=== PATIENT | male | born 1990 | race Caucasian/White ===

== ENCOUNTER 2023-02-28 14:54 | Emergency (ER) | payer SELFPAY ==
--- NOTE | ~2023-02-28 | XR_ITS ---
EXAMINATION: XR foot RT min 3V DATE: 02/28/2023 15:17 INDICATION: Right foot pain TECHNIQUE: Dorsoplantar, lateral, and 2 oblique views of the right foot were obtained. COMPARISON: None. FINDINGS: No fracture, dislocation, or subluxation. The bones, soft tissues, and joint spaces are normal. IMPRESSION: 1. No acute osseous abnormality. Reviewed, dictated and finalized at location []
[2023-02-28 15:00] VITALS: BP 137/87; PULSE 81; RESP 20; TEMP 36.4; O2SAT 99
--- NOTE | 2023-02-28 15:09 | ED.LOWEXIN ---
HPI - Extremity Injury (Lower) General Chief Complaint: Extremity Injury, Lower Stated Complaint: Right Foot Injury History of Present Illness HPI Narrative: patient presents with right foot pain with weight bearing. patient was wrestling last night witha relative and rolled his right foot. no deformity no bruising no edema noted. Related Data Home Medications Medication Instructions Recorded Confirmed No Home Medications 02/28/23 02/28/23 Allergies Allergy/AdvReac Type Severity Reaction Status Date / Time No Known Allergies Allergy Unverified 02/28/23 15:03 Review of Systems Review of Systems: CONSTITUTIONAL: Denies fever, chills, or sweats. EYES: Denies visual changes, redness, or discharge. ENT: Denies rhinorrhea, congestion, sore throat, or otalgia. CARDIOVASCULAR: Denies chest pain, palpitations, or edema. RESPIRATORY: Denies cough or dyspnea. GASTROINTESTINAL: Denies abdominal pain, nausea, vomiting, or diarrhea. GENITOURINARY: Denies dysuria or hematuria. SKIN: Denies rash or itching. MUSCULOSKELETAL: Denies back pain, joint pain, or myalgia. NEUROLOGIC: Denies headache, numbness, or weakness. PSYCHIATRIC: Denies anxiety or depression. PMFSH Comments At time of signature, agree with nursing past medical, surgical, social and family history. There is no relevant family history pertinent to the presenting complaint Exam Narrative: GENERAL: Well-appearing, well-nourished, and in no acute distress. HEAD: Normocephalic, atraumatic. EYES: PERRLA and EOMI. ENT: Nares clear, no rhinorrhea or epistaxis. Mucous membranes moist. NECK: Supple. CHEST: Clear to auscultation. No respiratory distress. HEART: Regular rate and rhythm. No murmur heard. Normal peripheral pulses. ABDOMEN: Soft, nontender, nondistended, normal active bowel sounds. EXTREMITIES: Normal range of motion. No edema.NORMAL DP PULSE, NORMAL CAP REFILL. NORMAL SENSATION. NVI. NO TENDERNESS TO FOOT SENSATION NVI NORMAL DORSALIS PEDIS PULSE. NORMAL MOVEMETN OF ALL TOES. NORMAL CAPILLARY REFILL. NORMAL SKIN COLOR. NO SKIN LESIONS SKIN TNTACT NO CALF PAIN NO CALF TENDERNESS NOCALF SWELLING NORMAL ROM OF KNEE.KIN INTACT. NORMAL DP PULSE, NORMAL CAP REFILL. NORMAL SENSATION. SKIN: Warm, dry, no rash. NEURO: No focal deficits. Alert and oriented x3. [place] Coma Scale Eye Opening: Spontaneous 4 [place] Coma Scale Motor: Obeys Commands 6 [place] Coma Scale Verbal: Oriented 5 [place] Coma Scale Total 15 Course Course Level of Care: Express Care Visit Vital Signs Vital signs: Vital Signs Temperature 36.4 C 02/28/23 15:00 Pulse Rate 81 02/28/23 15:00 Respiratory Rate 20 02/28/23 15:00 Blood Pressure 137/87 02/28/23 15:00 Pulse Oximetry 99 02/28/23 15:00 Oxygen Delivery Room Air 02/28/23 15:00 Temperature 36.4 C 02/28/23 15:00 Pulse Rate 81 02/28/23 15:00 Respiratory Rate 20 02/28/23 15:00 Blood Pressure 137/87 02/28/23 15:00 Pulse Oximetry 99 02/28/23 15:00 Oxygen Delivery Room Air 02/28/23 15:00 Please VANDANA schedule a followup visit with your personal physician for further evaluation and treatment. Including recheck and discussion of your blood pressure. If your symptoms persist, change or worsen significantly before you can contact your personal physician then please, without delay, go to the emergency department for further evaluation Discharge Plan Discharge Clinical Impression: Foot contusion Patient Disposition: Home, Self-Care Condition: Stable Instructions: Foot Contusion (ED) Additional Instructions: Ice to the area 20-30 minutes 4-6 times a day Elevate above heart Tylenol for lesser pain Ibuprofen regularly for the next 2-3 days for the inflammation Follow-up with PCP if further problems or concerns -If you have any worsening of symptoms or any other concerns please go to the ED immediately. Prescriptions: No Action No Home Medications
== END 2023-02-28 15:33 | disposition home or self-care (01) ==
PROVIDERS: Emergency Provider Nurse Practitioner Family
DX: S90.31XA Contusion of right foot, initial encounter (principal); X50.9XXA Other and unspecified overexertion or strenuous movements or postures, initial encounter; Y93.83 Activity, rough housing and horseplay
CPT/HCPCS: 73630; 99203; G0463

== ENCOUNTER 2023-07-23 14:34 | Emergency (ER) | payer MEDICAID, SELFPAY ==
[2023-07-23 14:40] VITALS: BP 130/76; PULSE 96; RESP 16; TEMP 37.3; O2SAT 98
[2023-07-23 14:49] VITALS: BP 130/76; PULSE 96; RESP 16; TEMP 37.3; O2SAT 98
--- NOTE | 2023-07-23 14:49 | ED.URI ---
HPI - URI/Sore Throat General Chief Complaint: Upper Respiratory Infection Stated Complaint: nausea/chills/aches Time Seen by Provider: 07/23/23 14:45 Source: patient and RN notes reviewed Mode of arrival: ambulatory Limitations: no limitations History of Present Illness HPI Narrative: 33-year-old male presents with concern for one-month history nasal congestion, drainage, sinus pain, cough, chills, body aches. Reports he has been taking Mucinex. MD elicited complaint: cough and nasal congestion Related Data Allergies Allergy/AdvReac Type Severity Reaction Status Date / Time No Known Allergies Allergy Verified 07/23/23 14:49 Review of Systems Review of Systems: CONSTITUTIONAL: Reports malaise, chills, sweats EYES: Denies visual changes, redness, or discharge. ENT: Reports rhinorrhea, congestion, sinus pain CARDIOVASCULAR: Denies chest pain, palpitations, or edema. RESPIRATORY: Reports cough. Denies dyspnea. GASTROINTESTINAL: Denies abdominal pain, nausea, vomiting, diarrhea SKIN: Denies rash or itching. MUSCULOSKELETAL: Reports myalgia. NEUROLOGIC: Reports headache. All systems reviewed & are unremarkable except as noted in HPI and below [facility] Comments At time of signature, agree with nursing past medical, surgical, social and family history. There is no relevant family history pertinent to the presenting complaint Exam Narrative: GENERAL: Nontoxic-appearing and in no acute distress. HEAD: Normocephalic EYES: PERRLA, conjunctivae clear ENT: Nares clear, sinus tenderness. Mucous membranes moist. TM pearly li with dull light reflex bilaterally; no tragal tenderness. Oropharynx not erythematous without lesions. Tonsils not enlarged and without exudate, no drooling, no hoarseness, no trismus, uvula midline. NECK: Supple. No lymphadenopathy CHEST: Scattered expiratory wheeze, otherwise clear to auscultation, breath sounds equal. No rhonchi, rales, or stridor. No respiratory distress, speaks in full sentences. HEART: Regular rate and rhythm. No murmur heard. SKIN: Warm, dry, no rash. NEURO: Alert and oriented x3. PSYCH: Normal mood and affect Course Course Emergency Course: Patient is aware of diagnosis, understands and agrees to treatment plan. Anticipatory guidance given. Patient agrees to follow-up as directed and is aware of reasons to seek care at the emergency department. Portions of this record may have been created with voice recognition software Level of Care: Express Care Visit Vital Signs Vital signs: Vital Signs Temperature 99.1 F 07/23/23 14:40 Pulse Rate 96 07/23/23 14:40 Respiratory Rate 16 07/23/23 14:40 Blood Pressure 130/76 07/23/23 14:40 Pulse Oximetry 98 07/23/23 14:40 Oxygen Delivery Room Air 07/23/23 14:40 Temperature 99.1 F 07/23/23 14:40 Pulse Rate 96 07/23/23 14:40 Respiratory Rate 16 07/23/23 14:40 Blood Pressure 130/76 07/23/23 14:40 Pulse Oximetry 98 07/23/23 14:40 Oxygen Delivery Room Air 07/23/23 14:40 Reviewed. MDM - URI/Sore Throat MDM Narrative Medical decision making narrative: Differential diagnosis considered: Coleman virus, strep pharyngitis, allergic rhinitis, upper respiratory tract infection, sinusitis, rhinosinusitis, nasopharyngitis. viral pharyngitis, otitis media, otitis externa, pneumonia, bronchitis, viral cough syndrome, viral syndrome, and influenza. Exam findings show no acute concerns or changes; patient is non-toxic appearing and is in no distress. Patient is appropriate for outpatient treatment and follow-up. Lab Data Attestation: I reviewed the patient's lab results. Critical Care Time Critical Care Time Critical Care Time: No Discharge Plan Discharge Clinical Impression: Sinobronchitis Patient Disposition: Home, Self-Care Condition: Stable Instructions: Antibiotic Form, Sinusitis (ED) Additional Instructions: Take medications as directed Recommend antihistamine such as Benadry
== END 2023-07-23 14:58 | disposition home or self-care (01) ==
PROVIDERS: Emergency Provider Nurse Practitioner; PCP Physician Assistant
DX: J32.9 Chronic sinusitis, unspecified (principal); J40 Bronchitis, not specified as acute or chronic
CPT/HCPCS: 99213; G0463

== ENCOUNTER 2023-08-02 15:26 | Emergency (ER) | payer MEDICAID, SELFPAY ==
[2023-08-02 15:30] VITALS: BP 153/81; PULSE 87; RESP 20; TEMP 36.7; O2SAT 95
--- NOTE | 2023-08-02 15:47 | ED.GENADULT ---
HPI - General Adult General Chief complaint: Upper Respiratory Infection Stated complaint: Nausea,Vomiting Source: patient, RN notes reviewed and old records reviewed History of Present Illness HPI narrative: 33 yo M presents to urgent care with complaints of runny nose, congestion, cough, and intermittent vomiting x 1 month. Pt also admits he is SOB sometimes. Pt states he can't urinate or have a BM but when discussed further, he is urinating 2-3x/day. Denies any diarrhea or abdominal pain. Denies any fevers, chills, chest pain. Pt was seen here 10 days ago and placed on doxycycline, medrol dose pack, and inhaler, that pt states he finished with no relief. Related Data Allergies Allergy/AdvReac Type Severity Reaction Status Date / Time No Known Allergies Allergy Verified 08/02/23 15:42 Review of Systems Review of Systems: Pertinent positives and pertinent negatives per HPI. PMFSH Comments At the time of my signature, I reviewed and agree with the nursing past medical, surgical, social, and family history. There is no relevant family history pertinent to the patient complaint. Exam Narrative: GENERAL: This is a well-nourished, well-developed patient, in no apparent distress. HEAD: normocephalic, atraumatic. EYES: Sclera clear/white. Vision is grossly intact. EARS: External ears normal, auditory canals clear and without drainage. Hearing grossly intact. NOSE: External nose normal with no obvious nasal discharge, nares without redness, no rhinorrhea. THROAT: Mucous membranes moist, posterior pharynx clear. NECK: Neck supple, non-tender without lymphadenopathy, masses or thyromegaly. CARDIOVASCULAR: Regular rate and rhythm without murmurs, gallops, or rubs. RESPIRATORY: Clear to auscultation. Breath sounds equal bilaterally. No wheezes, rales, or rhonchi. GASTROINTESTINAL: Abdomen soft, non-tender, nondistended. Bowel sounds are active. No hepato-splenomegaly, or palpable masses. No guarding. SKIN: warm, intact with no suspicious lesions or rash, good texture and turgor. NEURO: awake, alert, and oriented to person, place and time. There were no obvious focal neurologic abnormalities. Course Course Level of Care: Express Care Visit Vital Signs Vital signs: Vital Signs Temperature 98.1 F 08/02/23 15:30 Pulse Rate 87 08/02/23 15:30 Respiratory Rate 20 11/28/23 15:30 Blood Pressure 153/81 H 08/02/23 15:30 Pulse Oximetry 95 08/02/23 15:30 Oxygen Delivery Room Air 08/02/23 15:30 Temperature 98.1 F 08/02/23 15:30 Pulse Rate 87 08/02/23 15:30 Respiratory Rate 20 08/02/23 15:30 Blood Pressure 153/81 H 08/02/23 15:30 Pulse Oximetry 95 08/02/23 15:30 Oxygen Delivery Room Air 08/02/23 15:30 Reviewed Medical Decision Making MDM Narrative Medical decision making narrative: You've been diagnosed with a viral illness that would not require antibiotics at this time. Take the Zofran ODT at home as directed for nausea and get plenty of fluids. If you would like to eat food, you should follow the BRAT diet (bananas, rice, applesauce, and toast, or things of the like). If you develop any new or worsening symptoms, you should go to the emergency dept without hesitation. 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 pt passed PO challenge in exam room after the zofran. Differential Diagnosis Differential Diagnosis: Gastroenteritis, dehydration, Viral illness Vital Signs Vital Signs: Vital Signs Temperature 98.1 F 08/02/23 15:30 Pulse Rate 87 08/02/23 15:30 Respiratory Rate 20 08/02/23 15:30 Blood Pressure 153/81 H 08/02/23 15:30 Pulse Oximetry 95 08/02/23 15:30 Oxygen Delivery Room Air 08/02/23 15:30 Temperature 98.1 F 08/02/23 15:30 Pulse Rate 87 08/02/23 15:30 Respiratory Rate 20 08/02/23 15:30 Blood Pressure 153/81 H 08/02/23 15:30 Pulse Oximetry 95 08/02/23 15:30 Oxygen Delivery Room Air 08/02/23 15:30 Critical Care
[2023-08-02] MEDS: ONDANSETRON HCL ODT 4 MG TABLET PO (15:52)
--- NOTE | 2023-08-02 16:16 | PC.NURSE ---
PT TAKING WATER WITHOUT COMPLAINTS.
== END 2023-08-02 16:26 | disposition home or self-care (01) ==
PROVIDERS: Emergency Provider Nurse Practitioner Family; PCP Physician Assistant
DX: B34.9 Viral infection, unspecified (principal); K52.9 Noninfective gastroenteritis and colitis, unspecified
CPT/HCPCS: 99213; A9270; G0463

== ENCOUNTER 2023-09-02 19:15 | Emergency (ER) | payer OTHER, SELFPAY ==
--- NOTE | 2023-09-02 19:21 | ED.SKABFB ---
HPI - Skin/Abscess/Foreign Bdy General Chief complaint: Extremity Problem,Nontraumatic Stated complaint: left foot pinky toe swollen Time Seen by Provider: 09/02/23 19:25 Source: patient and RN notes reviewed Mode of arrival: ambulatory Limitations: dementia History of Present Illness HPI narrative: 33-year-old male presents with concern for pain, swelling, redness to the 5th digit of his left foot. 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 MD complaint: other (Redness) Related Data Allergies Allergy/AdvReac Type Severity Reaction Status Date / Time No Known Allergies Allergy Verified 09/02/23 19:28 Review of Systems Review of Systems: CONSTITUTIONAL: Denies malaise, chills, sweats, or fever. EYES: Denies redness, or discharge. ENT: Denies rhinorrhea, congestion, swollen lips, swollen tongue CARDIOVASCULAR: Denies chest pain, palpitations, or edema. RESPIRATORY: Denies cough or dyspnea. GASTROINTESTINAL: Denies abdominal pain, nausea, vomiting SKIN: Reports redness, swelling and tenderness to the 5th digit of the left foot. Denies purulent drainage, vesicles, bullae, numbness, pain beyond proportion MUSCULOSKELETAL: Denies joint pain or myalgia. NEUROLOGIC: Denies headache. All systems reviewed & are unremarkable except as noted in HPI and below PMFSH Comments At time of signature, agree with nursing past medical, surgical, social and family history. There is no relevant family history pertinent to the presenting complaint Exam Narrative: GENERAL: Well-appearing, well-nourished, and in no acute distress. HEAD: Normocephalic, atraumatic. EYES: PERRLA, conjunctivae clear ENT: Mucous membranes moist. NECK: Supple. No lymphadenopathy CHEST: Clear to auscultation. No respiratory distress. HEART: Regular rate and rhythm. SKIN: Warm, dry. Erythema, induration, tenderness, warmth noted to the 5th digit of the left foot, some purulent drainage noted between the 4th and 5th digits. No vesicles, bullae, necrosis, ecchymosis, crepitus noted. NEURO: Alert and oriented x3. PSYCH: Normal mood and affect Course Course Emergency Course: Patient is aware of diagnosis, understands and agrees to treatment plan. Anticipatory guidance given. Patient agrees to follow-up as directed and is aware of reasons to seek care at the emergency department. Portions of this record may have been created with voice recognition software Level of Care: Express Care Visit Vital Signs Vital signs: Reviewed. MDM - Skin/Abscess/Foreign Bdy MDM Narrative Medical decision making narrative: Does not appear at this time to be erythema multiforme, bullous, SJS, TEN; no evidence at this time to suggest RMSF, NSTI, endocarditis or Lyme disease; patient looks well, nontoxic and is tolerating oral intake; no neurologic signs or symptoms; no headache, photophobia or neck pain; afebrile. Patient does not have history of of penetrating trauma, laceration, blunt trauma, recent surgery, immunosuppression, malignancy, obesity, alcoholism, corticosteroid use. Discussed the importance of follow-up, patient agrees; question, cellulitis versus necrotizing soft tissue infection versus abscess. Critical Care Time Critical Care Time Critical Care Time: No Discharge Plan Discharge Clinical Impression: Cellulitis Patient Disposition: Home, Self-Care Condition: Stable Instructions: Antibiotic Form, Cellulitis (ED) Additional Instructions: Soak your foot: Soak your foot in a mixture of equal parts vinegar and water 3 or 4 times each day. This will help decrease inflammation. Apply a warm compress: Soak a washcloth in warm water and place it on your foot. This will help decrease inflammation. Elevate: Raise your foot above the level of your heart as often as you can. This will help decrease swelling and pain. Prop your foot on pillows or blankets to keep i
[2023-09-02 19:28] VITALS: BP 123/54; PULSE 99; RESP 18; TEMP 36.8; O2SAT 99
[2023-09-02 19:29] VITALS: BP 123/54; PULSE 99; RESP 18; TEMP 36.8; O2SAT 99
== END 2023-09-02 19:35 | disposition home or self-care (01) ==
PROVIDERS: Emergency Provider Nurse Practitioner; PCP Physician Assistant
DX: L03.032 Cellulitis of left toe (principal)
CPT/HCPCS: 99213; G0463

== ENCOUNTER 2023-11-10 15:03 | Emergency (ER) | payer OTHER, SELFPAY ==
[2023-11-10 15:11] VITALS: BP 132/80; PULSE 107; RESP 16; TEMP 36.1; O2SAT 99
--- NOTE | 2023-11-10 15:16 | ED.GENADULT ---
HPI - General Adult General Chief complaint: Skin/Abscess/Foreign Body Stated complaint: Skin Sore Lower Back Source: patient, RN notes reviewed and old records reviewed Mode of arrival: ambulatory Limitations: no limitations History of Present Illness HPI narrative: 33-year-old male patient presents to [facility] with complaint abscess to buttocks this started several days ago. Patient states has been trying to take care of it at home. Patient states cut it with a razor himself and had slight drainage. Patient denies history of abscesses, patient denies history of MRSA Related Data Home Medications Medication Instructions Recorded Confirmed sertraline 50 mg tablet mg 11/10/23 Allergies Allergy/AdvReac Type Severity Reaction Status Date / Time No Known Allergies Allergy Verified 11/10/23 15:14 Review of Systems Constitutional: Constitutional: Reports no additional constitutional complaints, Denies body ache(s), Denies chills, Denies fatigue, Denies fever(s) and Denies headache(s) Eyes: Eyes: Reports no additional eye complaints and Denies blurry vision ENT: Reports system reviewed and no additional complaints, except as documented, Denies vertigo, Denies dizziness, Denies ear discharge, Denies otalgia, Denies facial pain, Denies headache(s), Denies nasal congestion, Denies nasal discharge, Denies sinus pain, Denies sinus pressure and Denies sore throat Cardiovascular: Cardiovascular: Reports no additional cardiovascular complaints, Denies chest pain, Denies chest pain at rest, Denies rapid heart rate and Denies dyspnea Respiratory: Respiratory: Reports no additional respiratory complaints, Denies chest congestion, Denies cough, Denies pain on inspiration, Denies pain with cough and Denies dyspnea Gastrointestinal: Gastrointestinal: Denies abdominal pain, Denies diarrhea, Denies nausea and Denies vomiting Integumentary/Breasts: Skin/Breast: Reports change in pigmentation, Denies rash and Reports wounds Neurologic: Reports system reviewed and no additional complaints, except as documented, Denies vertigo, Denies dizziness and Denies headache(s) Endocrine: Endocrine: Denies fatigue PMFSH Comments At the time of my signature, I reviewed and agree with the nursing past medical, surgical, social, and family history. There is no relevant family history pertinent to the patient complaint. Exam Const: General: cooperative, healthy appearing, no acute distress and well nourished Nutritional Appearance: well nourished Orientation/consciousness: patient oriented x3 Limitations: no limitations HENMT: Head: normal to inspection and normocephalic Ears: external ears normal Face/Nose/Sinus: normal facial exam Face and sinus: normal facial exam Mouth: Yes Normal oral and palatal mucosa present, Yes oropharynx normal and Yes moist mucous membranes Eyes: General: appearance normal, both eyes and all related structures Sclera: sclerae normal Pupils: Equal, round and reactive pupils present Resp: Effort & Inspection: normal respiratory effort, able to speak in complete sentences, no audible wheezes, no cough, no respiratory distress and no retractions Skin: General skin exam: normal color Other: 3 cm pilonidal cyst to left buttocks Full body images: 1. 3 cm pilonidal cyst with slight surrounding erythema no drainage Neuro: General: patient oriented x3 Cranial nerves: Yes Equal, round and reactive pupils present Psych: Appearance: grossly normal Mental Status: mental status grossly normal Speech and movement: Normal speech and movement present Affect: normal affect Course Course Emergency Course: Patient is aware of diagnosis, understands and agrees to treatment plan.? Anticipatory guidance given.? Patient agrees to follow-up as directed and is aware of reasons to seek care at the emergency department. Some parts of this dictation were generated by voice recognition software and may contain typogr
== END 2023-11-10 15:28 | disposition home or self-care (01) ==
PROVIDERS: Emergency Provider Registered Nurse; PCP Physician Assistant
DX: L05.01 Pilonidal cyst with abscess (principal)
CPT/HCPCS: 99213; G0463

== ENCOUNTER 2024-01-07 12:29 | Emergency (ER) | payer OTHER, SELFPAY ==
[2024-01-07 12:39] VITALS: BP 153/82; PULSE 127; RESP 16; TEMP 36.9; O2SAT 100
--- NOTE | 2024-01-07 13:03 | ED.SKABFB ---
HPI - Skin/Abscess/Foreign Bdy General Chief complaint: Skin/Abscess/Foreign Body Stated complaint: Leg wound (thinks spider) Time Seen by Provider: 01/07/24 13:00 Source: patient, RN notes reviewed and old records reviewed Mode of arrival: ambulatory Limitations: no limitations History of Present Illness HPI narrative: 33 year old male accompanied by significant other presents to express care with complaints of having an infected wound to his right anterior thigh area for the past 4 days> Patient reports that he initially had redness to area thought may be he had been bitten by something or had ingrown hair. He states that he applied Prid salve to area yesterday and it opened up and has been draining yellowish bloody drainage. Patient reports no fevers, chills or sweats. MD complaint: abscess/boil Onset (ago): day(s) (4) Location: RLE (mid anterior thighs) Severity scale (1-10): 4 Quality: aching Treatments prior to arrival: other (PRID) Related Data Home Medications Medication Instructions Recorded Confirmed sertraline 50 mg tablet 50 mg PO DAILY 11/10/23 01/07/24 Allergies Allergy/AdvReac Type Severity Reaction Status Date / Time No Known Allergies Allergy Verified 11/10/23 15:14 Review of Systems Review of Systems: CONSTITUTIONAL: Denies fever, chills, or sweats. CARDIOVASCULAR: Denies chest pain, palpitations, or edema. RESPIRATORY: Denies cough or dyspnea. GASTROINTESTINAL: Denies abdominal pain, nausea, vomiting SKIN: Reports redness and swelling. Reports purulent drainage, from abscess of right thigh MUSCULOSKELETAL: Denies myalgia. NEUROLOGIC: Denies headache, numbness All systems reviewed & are unremarkable except as noted in HPI and below PMFSH Past Medical History Medical History (Updated 01/07/24 @ 14:31 by Xiomara Moreno NP) Anxiety and depression Pilonidal cyst with abscess Right hand fracture Social History Social History Smoking packs per day: 1 Smoking cigarettes per day: 20.0 Years smoked: 10 Smoking pack-years: 10.00 Smoking status: Current every day smoker Tobacco type: cigarettes Alcohol intake: former Substance use type: marijuana Living arrangements: with family Gender identity (if verbalized by the patient): Male Comments At time of signature, agree with nursing past medical, surgical, social and family history. There is no relevant family history pertinent to the presenting complaint Exam Narrative: GENERAL: Well-appearing, well-nourished, and in no acute distress. HEAD: Normocephalic, atraumatic. EYES: PERRLA and EOMI. ENT: Nares clear, no rhinorrhea or epistaxis. Mucous membranes moist. NECK: Supple. no lymphadenopathy CHEST: Clear to auscultation. No respiratory distress.SAO2 100% on room air HEART: Regular rate and rhythm. No murmur heard. Normal peripheral pulses. ABDOMEN: Soft, nontender, nondistended, normal active bowel sounds. EXTREMITIES: Normal range of motion. No edema. SKIN: Warm, dry. Erythema, induration, tenderness, warmth with total wound 1cm X 1cm with surrounding erythema total of 3cm to right mid upper thigh, yellowish bloody drainage from wound site, NEURO: No focal deficits. Alert and oriented x3. Course Course Emergency Course: Patient is aware of diagnosis, understands and agrees to treatment plan. Anticipatory guidance given. Patient agrees to follow-up as directed and is aware of reasons to seek care at the emergency department. Portions of this record may have been created with voice recognition software Level of Care: Express Care Visit Vital Signs Vital signs: Vital Signs Temperature 36.9 C 01/07/24 12:39 Pulse Rate 127 H 01/07/24 12:39 Respiratory Rate 16 01/07/24 12:39 Blood Pressure 153/82 H 01/07/24 12:39 Pulse Oximetry 100 01/07/24 12:39 Temperature 36.9 C 01/07/24 12:39 Pulse Rate 127 H 01/07/24 12:39 Respiratory Rate
== END 2024-01-07 13:15 | disposition home or self-care (01) ==
PROVIDERS: Emergency Provider Registered Nurse; PCP Physician Assistant
DX: L02.415 Cutaneous abscess of right lower limb (principal); F17.210 Nicotine dependence, cigarettes, uncomplicated; F41.9 Anxiety disorder, unspecified; F32.A Depression, unspecified
CPT/HCPCS: 99213; G0463